=== PATIENT | female | born 1990 | race Caucasian/White ===

== ENCOUNTER → 2025-05-02 09:05 | Outpatient (CLI) | payer OTHER, SELFPAY ==
[2025-05-02 18:43] LABS: Add Manual Diff / Slide Review NO; Hematocrit 37.1 % (36-46); Hemoglobin 12.6 g/dL (12.0-16.0); Lymphocytes Absolute Auto 800 /uL (1100-4500); Mean Corpuscular HGB Conc 34.1 % (30-36); Mean Corpuscular Hemoglobin 31.6 PG (26-34); Mean Corpuscular Volume 92.7 fL (80-100); Platelet Count 250 X10^3/uL (150-400)
[2025-05-02 18:53] LABS: Alanine Aminotransferase 20 IU/L (<35); Albumin 4.6 g/dL (3.5-5.0); Albumin Globulin Ratio 1.6 (1.0-2.8); Alkaline Phosphatase 63 U/L (38-126); Blood Urea Nitrogen 22 mg/dL (7-17); Calcium 9.6 mg/dL (8.4-10.2); Carbon Dioxide 24 mmol/L (22-32); Chloride 100 mmol/L (98-107); Estimated Glomerular Filt Rate > 60 mL/min (>60); Globulin 2.8 g/dL (1.7-4.1); Glucose 92 mg/dL (70-99); HEMOLYSIS 17 (0-50); Potassium 4.2 mmol/L (3.4-5.1); Sodium 136 mmol/L (137-145); Total Protein 7.4 g/dL (6.3-8.2)
[2025-05-02 19:04] LABS: Vitamin D 25 Hydroxy (D3) 46.4 ng/mL (30.0-100.0)
[2025-05-02 19:21] LABS: TSH w/ Reflex to FT4 0.74 uIU/mL (0.47-4.68)
[2025-05-02 19:39] LABS: HIV 1 & 2 Ab/Ag 4th Gen Combo NEGATIVE (NEGATIVE); Hep C Virus Ab w/Reflex Quant NEGATIVE s/c (NEGATIVE)
[2025-05-02 19:40] LABS: Vitamin B12 463 pg/mL (239-931)
== END ==
PROVIDERS: PCP Physician Assistant; Visit Provider Physician Assistant
DX: Z11.4 Encounter for screening for human immunodeficiency virus [HIV] (principal); Z11.59 Encounter for screening for other viral diseases; K58.9 Irritable bowel syndrome, unspecified; R19.8 Other specified symptoms and signs involving the digestive system and abdomen; M25.50 Pain in unspecified joint
CPT/HCPCS: 80053; 82274; 82306; 82607; 84443; 85025; 85651; 86140; 86803; 87045; 87177; 87389